=== PATIENT | male | born 1980 | race Caucasian/White ===

== ENCOUNTER → 2023-07-04 | Outpatient (CLI) | payer OTHER, SELFPAY ==
--- NOTE | 2023-07-04 08:55 | EKG12_ITS ---
Test Reason : PRE OP Blood Pressure : / mmHG Vent. Rate : 087 BPM Atrial Rate : 087 BPM P-R Int : 124 ms QRS Dur : 090 ms QT Int : 352 ms P-R-T Axes : 015 -16 054 degrees QTc Int : 423 ms Normal sinus rhythm Normal ECG Confirmed by MILLER DIXON, CHELSEA ([id number]), communications editor LACHO COLEMAN ([id number]) on 07/04/2023 1:19:14 PM Referred By: Darren Gallardo Confirmed By:CHELSEA BHATT MD
== END | disposition home or self-care (01) ==
PROVIDERS: PCP Family Medicine; Referring Provider Family Medicine; Visit Provider Family Medicine
DX: Z01.818 Encounter for other preprocedural examination (principal)
CPT/HCPCS: 93005